=== PATIENT | female | born 1940 | race Caucasian/White ===

== ENCOUNTER → 2020-08-08 | Outpatient (CLI) | payer MEDICARE, BC ==
[2015-02-17 11:55] VITALS: BP 108/60
[~2020-08-08] MED LIST: ALPR0.254 PO; ASPI325T8 PO; DIGO250T PO; DILT240C2 PO; EZET10TA20 PO; FISH1CAP PO; INSU100V12 SQ; LEXAPRO10 MG PO; LISI10TA2 PO; MULT-445 PO; OXYB-36 PO; PANT40TA6 PO; PIOG15TA42 PO; POTA20TA12 PO; PROP300T PO; UBID100C40 PO
--- NOTE | 2020-08-15 11:31 | RAD ---
EXAM: Bilateral digital screening mammogram with tomosynthesis. HISTORY: 80-year-old female presents for screening mammography. TECHNIQUE: Full-field digital craniocaudal and mediolateral oblique 2D and 3D tomosynthesis images of both breasts are obtained for evaluation. Computer aided detection was applied. COMPARISON: 12/27/2018 and 12/24/2017 BREAST PARENCHYMAL DENSITY: Level D - Extremely dense. FINDINGS: There is no new suspicious mass, microcalcification or region of architectural distortion. There are stable areas of asymmetry within both breasts. There are a few benign calcifications IMPRESSION: BI-RADS Category 2: Benign finding(s). RECOMMENDATION: Annual mammography is recommended. If your mammogram demonstrates that you have dense breast tissue, which could hide abnormalities, and if you have other risk factors for breast cancer that have been identified, you might benefit from supplemental screening tests that may be suggested by your ordering physician. Dense breast tissue, in and of itself, is a relatively common condition. This information is not provided to cause undue concern, but rather to raise your awareness and to promote discussion with your physician regarding the presence of other risk factors, in addition to dense breast tissue. A report of your mammography results will be sent to you and your physician. You should contact your physician if you have any questions or concerns regarding this report. Mammography is a sensitive method for finding small breast cancers, but it does not detect them all and is not a substitute for careful clinical examination. A negative mammogram does not negate a clinically suspicious finding and should not result in delay in biopsying a clinically suspicious abnormality. PQRS compliance statement - Patient information was entered into a reminder system with a target due date for the next mammogram. "Our facility is accredited by the [employer] Mammography [employer]." Electronically signed by: Cynthia Duvall MD (08/15/2020 11:28 AM) [id number]
== END ==
LOC: MAMMO 11:30
PROVIDERS: ATTEND Family Medicine
DX: Z12.31 Encounter for screening mammogram for malignant neoplasm of breast (principal)
CPT/HCPCS: 77063; 77067